=== PATIENT | female | born 1945 | race Hispanic/Latino ===

== ENCOUNTER 2018-10-07 06:06 | Inpatient (IN) | payer MEDICARE, MEDICAID ==
[2018-10-05 18:20] VITALS: BMI 20.7
[2018-10-07] MEDS ORDERED: Lactated Ringer's 1,000 ML IV ONE ×2 (06:59→09:53)
--- NOTE | 2018-10-07 07:18 | CP.SDSHP ---
Same Day Surgery H & P - History Proposed Procedure: L 5th metatarsal ORIF Pre-Op Diagnosis: Left 5th metatarsal fracture - Previous Medical/Surgical History Previous Surgical History: Hysterectomy, L cataract, colectomy - Allergies Allergies: Allergies morphine Allergy (Verified 10/05/18 18:22) HIVES - Physical Exam Vital Signs: Vital Signs 10/07/18 10/07/18 06:34 06:39 Temperature 97.5 F L Pulse Rate 69 69 Respiratory 18 Rate Blood Pressure 154/82 H O2 Sat by Pulse 97 Oximetry Mental Status: Alert & Oriented x3 Neuro: WNL Heart: WNL Lungs: WNL GI: WNL - Impression Impression: Pt was seen and examined in [facility]. Pt NPO status was confirmed. All pre-op testing and clearance in chart. Pt has exhausted all conservative treatment at this time and is opting for surgical intervention. Pt was explained procedure and post-operative course. All pt's questions were answered to satisfaction. No guarantees were made. Pt understands all risks, benefits and complications of procedure. Pt will follow-up with Dr. Vu within 1 week of surgery Pt. Evaluated Today:Candidate for Anesthesia & Procedure: Yes - Date & Time Date: 10/07/18 Time: 07:18 Short Stay Discharge - Short Stay Discharge Admitting Diagnosis/Reason for Visit: [id number] Disposition: HOME/ ROUTINE Additional Instructions (Diet, Activity): -Patient to be admitted to for [facility] extended stay -Pt to resume medications per medical reconciliation -Resume regular diet -Please keep dressing clean, dry, & intact to surgical site -Use plastic bag over bandage for showering -Wear post op shoe at all times when ambulating -Call clinic if you see signs of infection (redness, swelling, malodor) Progress Note/Discharge Note with Instructions: - Patient evaluated bedside in recovery s/p L 5th metatarsal ORIF - After surgical procedure patient in NAD - (+) Void, (+) Appetite - Capillary refill time <3s and NVS intact. - Patient denies complaints at this time. - Post operative instructions and plan of care explained to patient at length. - Patient. acknowledges verbal understanding.
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
[2018-10-07] MEDS ORDERED: Lidocaine 1% Inj (20ml) IJ ONE ×2 (07:23→08:35)
[2018-10-07] MEDS ORDERED: Bupivacaine 0.25% Inj(30mL) IJ ONE (07:23)
[2018-10-07] MEDS ORDERED: Propofol 10 mg/ml Inj (20 ML) ONE ×2 (07:33→07:44)
[2018-10-07] MEDS ORDERED: Midazolam 2 MG/2 ML VIAL ONE ×2 (07:33→07:44)
[2018-10-07] MEDS ORDERED: ePHEDrine 50 mg/ml Inj ONE ×2 (07:44→08:58)
[2018-10-07] MEDS ORDERED: Lidocaine 4% (Laryng-O-Jet) Kit MM ONE (07:44)
[2018-10-07] MEDS ORDERED: Succinylcholine Chloride 20 mg/ml Syr (5 ml) IV ONE (07:44)
[2018-10-07] MEDS ORDERED: Dexamethasone 4 mg/1 ml ONE ×2 (08:05→08:58)
[2018-10-07] MEDS ORDERED: Bupivacaine 0.5% Inj(30mL) ONE (08:06)
[2018-10-07] MEDS ORDERED: Bupivacaine 0.5% 50 ML IJ ONE (08:35)
[2018-10-07] MEDS ORDERED: Desflurane Inhalation Anesthetic Liq (240 ml) ONE (08:42)
[2018-10-07] MEDS ORDERED: Bupivacaine HCl 0.5% PF (30 ml) Inj IJ ONE (10:10)
[2018-10-07] MEDS ORDERED: HYDROmorphone 0.5 mg/0.5 ml ISec IVP PRN (10:41)
--- NOTE | 2018-10-07 10:49 | PCM.SURG1 ---
Surgeon's Initial Post Op Note - Surgeon's Notes Surgeon: Dr. Vu Blast Setter: Dr. Nelida Hagen, PGY3, Dr. Yessica Simpson PGY1 Type of Anesthesia: General Endo, Local Anesthesia Administered By: Dr. Beasley Pre-Operative Diagnosis: L 5th metatarsal fracture Operative Findings: See dicatation: I: 9 cc marcaine plain. M: 0 Cerclage wire, 3-0 Nylon, 2-0 Vicryl Post-Operative Diagnosis: Same Operation Performed: L 5th metatarsal ORIF Specimen/Specimens Removed: None Estimated Blood Loss: EBL {In ML}: 5 Blood Products Given: N/A Drains Used: No Drains Post-Op Condition: Good Date of Surgery/Procedure: 10/07/18 Time of Surgery/Procedure: 10:48
--- NOTE | 2018-10-07 11:18 | RAD ---
Date of service: 10/07/2018 PROCEDURE: Left Foot Radiographs. HISTORY: s/p L 5th met ORIF COMPARISON: None. FINDINGS: Distal left lower extremity cast limits evaluation of fine bony detail. There has been pin fixation of the 5th digit with cerclage wires surrounding the mid metatarsal body. No gross abnormality involving the remaining osseous structures is evident aside from 1st tarsometatarsal joint arthritic changes. IMPRESSION: Open reduction internal fixation of the 5th digit. 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
[2018-10-08] MEDS: Lactated Ringer's 1,000 ML IV SCH (03:00)
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
--- NOTE | 2018-10-08 15:25 | CP.PCM.PN ---
Subjective - Date & Time of Evaluation Date of Evaluation: 10/08/18 Time of Evaluation: 15:23 - Subjective Subjective: Podiatry Progress Note: Dr. Vu 72 year old female patient seen and evaluated POD#1 for L 5th metatarsal ORIF. Patient resting comfortably in Ortho chair and in NAD. She continues to elevate her lower extremity while she is resting.She states that she has participated in physical therapy, becomes dizzy and is unsteady while she walks with her crutches. She is accompanied by her brother at bedside. She denies any N/V/F/SOB/CP. Objective - Vital Signs/Intake and Output Vital Signs (last 24 hours): Temp Pulse Resp BP Pulse Ox 97.6 F 67 18 107/63 100 10/08/18 08:02 10/08/18 08:02 10/08/18 08:02 10/08/18 08:02 10/08/18 08:02 - Medications Medications: Current Medications Acetaminophen (Tylenol 325mg Tab) 325 mg PO Q4 PRN PRN Reason: Pain, Mild (1-3) Acetaminophen (Tylenol 325mg Tab) 650 mg PO Q4 PRN PRN Reason: Pain, moderate (4-7) Last Admin: 10/08/18 14:19 Dose: 650 mg Hydromorphone HCl (Dilaudid) 0.5 mg IVP Q10M PRN PRN Reason: Pain, moderate (4-7) Lactated Ringer's (Lactated Ringer's) 1,000 mls @ 125 mls/hr IV .Q8H CLAIRE Last Admin: 10/08/18 03:00 Dose: Not Given Ondansetron HCl (Zofran Inj) 4 mg IVP Q6 PRN PRN Reason: Nausea/Vomiting - Constitutional Appears: Non-toxic, No Acute Distress - Head Exam Head Exam: ATRAUMATIC, NORMOCEPHALIC - Extremities Exam Additional comments: Posterior splint C/D/I CFT < 3 seconds to digits Patient able to wiggle toes NVS intact - Neurological Exam Neurological Exam: Alert, Awake, Oriented x3 - Psychiatric Exam Psychiatric exam: Normal Affect, Normal Mood Assessment and Plan - Assessment and Plan (Free Text) Assessment: 72 year old female patient seen and evaluated POD#1 for L 5th metatarsal ORIF. Plan: Patient seen and evaluated with all questions and concerns addressed Discussed patient in detail with Dr. Vu Patient to leave dressing C/D/I to the L lower extremity Continue with physical therapy to resolve gait instability Patient to remain NWB to the left lower extremity at all times with the use of crutches/walker Continue to elevate LLE Will continue to follow
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
[2018-10-09] MEDS: Lactated Ringer's 1,000 ML IV SCH (02:44)
[2018-10-09 06:43] LABS: HEMOGLOBIN 12.1 g/dL (12.0-16.0); MEAN CELL VOLUME 91.9 fl (81.0-99.0); MEAN CORPUSCULAR HEMOGLOBIN 29.2 pg (27.0-31.0); MEAN CORPUSCULAR HGB CONC 31.8 g/dL (33.0-37.0); RBC 4.15 Mil/uL (3.80-5.20); RED CELL DISTRIBUTION WIDTH 15.3 % (11.5-14.5); WHITE BLOOD COUNT 6.7 K/uL (4.8-10.8)
[2018-10-09 06:54] LABS: ALB/GLOB RATIO 1.1 (1.0-2.1); ALBUMIN 3.3 g/dL (3.5-5.0); ALT/SGPT 24 U/L (9-52); AST/SGOT 23 U/L (14-36); BLOOD UREA NITROGEN 17 mg/dl (7-17); CALCIUM 8.9 mg/dL (8.4-10.2); GFR NON-AFRICAN AMERICAN > 60
[2018-10-09 07:13] LABS: PROTHROMBIN TIME 11.7 Seconds (9.8-13.1)
[2018-10-09 07:28] LABS: PARTIAL THROMBOPLASTIN TIME 32.8 Seconds (25.6-37.1)
--- NOTE | 2018-10-09 12:05 | CP.PCM.PN ---
Subjective - Date & Time of Evaluation Date of Evaluation: 10/09/18 Time of Evaluation: 12:04 - Subjective Subjective: Podiatry Progress Note: Dr. Vu 72 year old female patient seen and evaluated POD#2 for L 5th metatarsal ORIF. Patient resting comfortably in bed and in NAD. She continues to elevate her lower extremity while she is resting. She states that she has participated in physical therapy, becomes dizzy and is unsteady while she walks with her crutches. Patient states her pain is more well controlled. She denies any N/V/F/SOB/CP. Objective - Vital Signs/Intake and Output Vital Signs (last 24 hours): Temp Pulse Resp BP Pulse Ox 97.8 F 70 20 177/71 H 94 L 10/09/18 08:37 10/09/18 08:37 10/09/18 08:37 10/09/18 08:37 10/09/18 08:37 - Medications Medications: Current Medications Acetaminophen (Tylenol 325mg Tab) 325 mg PO Q4 PRN PRN Reason: Pain, Mild (1-3) Acetaminophen (Tylenol 325mg Tab) 650 mg PO Q4 PRN PRN Reason: Pain, moderate (4-7) Last Admin: 10/09/18 07:15 Dose: 650 mg Hydromorphone HCl (Dilaudid) 0.5 mg IVP Q10M PRN PRN Reason: Pain, moderate (4-7) Ondansetron HCl (Zofran Inj) 4 mg IVP Q6 PRN PRN Reason: Nausea/Vomiting - Labs Labs: 10/09/18 05:50 10/09/18 05:50 PT 11.7 Seconds (9.8-13.1) 10/09/18 05:50 INR 1.0 10/09/18 05:50 APTT 32.8 Seconds (25.6-37.1) 10/09/18 05:50 - Constitutional Appears: Well, Non-toxic, No Acute Distress - Head Exam Head Exam: ATRAUMATIC, NORMOCEPHALIC - Extremities Exam Additional comments: Posterior splint C/D/I CFT < 3 seconds to digits Patient able to wiggle toes NVS intact - Neurological Exam Neurological Exam: Alert, Awake, Oriented x3 - Psychiatric Exam Psychiatric exam: Normal Affect, Normal Mood Assessment and Plan - Assessment and Plan (Free Text) Assessment: 72 year old female patient seen and evaluated POD#2 for L 5th metatarsal ORIF. Plan: Patient seen and evaluated with all questions and concerns addressed with Dr. Vu Discussed patient in detail with Dr. Vu Patient to leave dressing C/D/I to the L lower extremity Continue with physical therapy to resolve gait instability Patient discharge to TCU or [facility] for further rehabilitation Patient to remain NWB to the left lower extremity at all times with the use of crutches/walker Continue to elevate LLE Will continue to follow
[2018-10-10] MEDS: Enoxaparin 40 mg Syringe SC SCH (10:18)
--- NOTE | 2018-10-10 12:23 | CP.PCM.PN ---
Subjective - Date & Time of Evaluation Date of Evaluation: 10/10/18 Time of Evaluation: 12:21 - Subjective Subjective: Podiatry Progress Note: Dr. Vu 72 year old female patient seen and evaluated POD#3 for L 5th metatarsal ORIF. Patient resting comfortably in bed and in NAD. Patient states she has sensitivity to the left leg, but pain is controlled at this time. She continues to elevate her lower extremity while she is resting. She denies any N/V/ F/SOB/CP. Objective - Vital Signs/Intake and Output Vital Signs (last 24 hours): Temp Pulse Resp BP Pulse Ox 97.8 F 58 L 20 146/75 99 10/10/18 08:48 10/10/18 08:48 10/10/18 08:48 10/10/18 08:48 10/10/18 08:48 - Medications Medications: Current Medications Acetaminophen (Tylenol 325mg Tab) 325 mg PO Q4 PRN PRN Reason: Pain, Mild (1-3) Acetaminophen (Tylenol 325mg Tab) 650 mg PO Q4 PRN PRN Reason: Pain, moderate (4-7) Last Admin: 10/10/18 10:17 Dose: 650 mg Enoxaparin Sodium (Lovenox) 40 mg SC DAILY CLAIRE; Protocol Last Admin: 10/10/18 10:18 Dose: 40 mg Ketorolac Tromethamine (Toradol) 15 mg IVP Q6 PRN PRN Reason: Pain, severe (8-10) Last Admin: 10/09/18 23:09 Dose: 15 mg Ondansetron HCl (Zofran Inj) 4 mg IVP Q6 PRN PRN Reason: Nausea/Vomiting - Labs Labs: 10/09/18 05:50 10/09/18 05:50 PT 11.7 Seconds (9.8-13.1) 10/09/18 05:50 INR 1.0 10/09/18 05:50 APTT 32.8 Seconds (25.6-37.1) 10/09/18 05:50 - Constitutional Appears: Well, Non-toxic, No Acute Distress - Head Exam Head Exam: ATRAUMATIC, NORMOCEPHALIC - Extremities Exam Additional comments: Posterior splint C/D/I CFT < 3 seconds to digits Patient able to wiggle toes NVS intact - Neurological Exam Neurological Exam: Alert, Awake - Psychiatric Exam Psychiatric exam: Normal Affect, Normal Mood Assessment and Plan - Assessment and Plan (Free Text) Assessment: 72 year old female patient seen and evaluated POD#3 for L 5th metatarsal ORIF. Plan: Patient seen and evaluated with all questions and concerns addressed Discussed patient in detail with Dr. Vu Patient to leave dressing C/D/I to the L lower extremity Continue with physical therapy to resolve gait instability Patient discharge to TCU or [facility] for further rehabilitation Patient to remain NWB to the left lower extremity at all times with the use of crutches/walker POsterior splint adjusted for patient Continue to elevate LLE and application of ice Will continue to follow
--- NOTE | 2018-10-10 22:09 | CP.PCM.PN ---
Subjective - Date & Time of Evaluation Date of Evaluation: 10/09/18 Time of Evaluation: 16:30 Objective - Vital Signs/Intake and Output Vital Signs (last 24 hours): Temp Pulse Resp BP Pulse Ox 97.6 F 66 18 163/87 H 96 10/10/18 16:35 10/10/18 16:35 10/10/18 16:35 10/10/18 16:35 10/10/18 16:35 - Medications Medications: Current Medications Acetaminophen (Tylenol 325mg Tab) 325 mg PO Q4 PRN PRN Reason: Pain, Mild (1-3) Acetaminophen (Tylenol 325mg Tab) 650 mg PO Q4 PRN PRN Reason: Pain, moderate (4-7) Last Admin: 10/10/18 10:17 Dose: 650 mg Enoxaparin Sodium (Lovenox) 40 mg SC DAILY CLAIRE; Protocol Last Admin: 10/10/18 10:18 Dose: 40 mg Ketorolac Tromethamine (Toradol) 15 mg IVP Q6 PRN PRN Reason: Pain, severe (8-10) Last Admin: 10/09/18 23:09 Dose: 15 mg Ondansetron HCl (Zofran Inj) 4 mg IVP Q6 PRN PRN Reason: Nausea/Vomiting - Labs Labs: 10/09/18 05:50 10/09/18 05:50 PT 11.7 Seconds (9.8-13.1) 10/09/18 05:50 INR 1.0 10/09/18 05:50 APTT 32.8 Seconds (25.6-37.1) 10/09/18 05:50
--- NOTE | 2018-10-10 22:10 | CP.PCM.PN ---
Subjective - Date & Time of Evaluation Date of Evaluation: 10/10/18 Time of Evaluation: 16:40 Objective - Vital Signs/Intake and Output Vital Signs (last 24 hours): Temp Pulse Resp BP Pulse Ox 97.6 F 66 18 163/87 H 96 10/10/18 16:35 10/10/18 16:35 10/10/18 16:35 10/10/18 16:35 10/10/18 16:35 - Medications Medications: Current Medications Acetaminophen (Tylenol 325mg Tab) 325 mg PO Q4 PRN PRN Reason: Pain, Mild (1-3) Acetaminophen (Tylenol 325mg Tab) 650 mg PO Q4 PRN PRN Reason: Pain, moderate (4-7) Last Admin: 10/10/18 10:17 Dose: 650 mg Enoxaparin Sodium (Lovenox) 40 mg SC DAILY CLAIRE; Protocol Last Admin: 10/10/18 10:18 Dose: 40 mg Ketorolac Tromethamine (Toradol) 15 mg IVP Q6 PRN PRN Reason: Pain, severe (8-10) Last Admin: 10/09/18 23:09 Dose: 15 mg Ondansetron HCl (Zofran Inj) 4 mg IVP Q6 PRN PRN Reason: Nausea/Vomiting - Labs Labs: 10/09/18 05:50 10/09/18 05:50 PT 11.7 Seconds (9.8-13.1) 10/09/18 05:50 INR 1.0 10/09/18 05:50 APTT 32.8 Seconds (25.6-37.1) 10/09/18 05:50
--- NOTE | 2018-10-11 06:33 | CP.PCM.PN ---
Subjective - Date & Time of Evaluation Date of Evaluation: 10/11/18 Time of Evaluation: 06:33 - Subjective Subjective: Podiatry Progress Note: Dr. Vu 72 year old female patient seen and evaluated POD#4 for L 5th metatarsal ORIF. Patient resting comfortably in bed and in NAD. Patient states that she continues to use her crutches, however feels unsteady while ambulating. She states that she has had mild burning pain to the surgical site overnight, however the pain is tolerable. She denies any N/V/F/SOB/CP. Objective - Vital Signs/Intake and Output Vital Signs (last 24 hours): Temp Pulse Resp BP Pulse Ox 98.1 F 78 18 108/64 96 10/10/18 23:30 10/10/18 23:30 10/10/18 23:30 10/10/18 23:30 10/10/18 23:30 - Medications Medications: Current Medications Acetaminophen (Tylenol 325mg Tab) 325 mg PO Q4 PRN PRN Reason: Pain, Mild (1-3) Acetaminophen (Tylenol 325mg Tab) 650 mg PO Q4 PRN PRN Reason: Pain, moderate (4-7) Last Admin: 10/10/18 23:02 Dose: 650 mg Enoxaparin Sodium (Lovenox) 40 mg SC DAILY CLAIRE; Protocol Last Admin: 10/10/18 10:18 Dose: 40 mg Ketorolac Tromethamine (Toradol) 15 mg IVP Q6 PRN PRN Reason: Pain, severe (8-10) Last Admin: 10/09/18 23:09 Dose: 15 mg Ondansetron HCl (Zofran Inj) 4 mg IVP Q6 PRN PRN Reason: Nausea/Vomiting - Labs Labs: 10/09/18 05:50 10/09/18 05:50 PT 11.7 Seconds (9.8-13.1) 10/09/18 05:50 INR 1.0 10/09/18 05:50 APTT 32.8 Seconds (25.6-37.1) 10/09/18 05:50 - Constitutional Appears: Non-toxic, No Acute Distress - Head Exam Head Exam: ATRAUMATIC, NORMOCEPHALIC - Extremities Exam Additional comments: Posterior splint C/D/I CFT < 3 seconds to digits Patient able to wiggle toes NVS intact - Neurological Exam Neurological Exam: Alert, Awake, Oriented x3 - Psychiatric Exam Psychiatric exam: Normal Affect, Normal Mood Assessment and Plan - Assessment and Plan (Free Text) Assessment: 72 year old female POD#4 for L 5th metatarsal ORIF. Plan: Patient seen and evaluated at bedside with Dr. Vu Patient to leave dressing C/D/I to the L lower extremity Continue with physical therapy to resolve gait instability Patient to remain NWB to the left lower extremity at all times with the use of crutches/walker Continue to elevate LLE and application of ice Patient discharge to TCU or [facility] for further rehabilitation Will continue to follow while in house
[2018-10-11 08:29] VITALS: RESP 20
[2018-10-11] MEDS: Enoxaparin 40 mg Syringe SC SCH (10:20)
[2018-10-11 23:26] VITALS: BP 147/83; PULSE 64; TEMP 97.4; O2SAT 99
== END 2018-10-11 23:50 | DRG 505 ==
LOC: H.OPSURG 06:06 → H.MEDSURG1 14:10
PROVIDERS: ADMIT Internal Medicine; ATTEND Internal Medicine
PROC: 0QSP04Z Reposition Left Metatarsal with Internal Fixation Device, Open Approach (ICD-10-PCS; principal; 2018-10-07 07:45)
DX: S92.352A Displaced fracture of fifth metatarsal bone, left foot, initial encounter for closed fracture (principal); Z90.710 Acquired absence of both cervix and uterus; H26.9 Unspecified cataract; W19.XXXA Unspecified fall, initial encounter; Y93.9 Activity, unspecified; Y92.9 Unspecified place or not applicable

== ENCOUNTER 2018-10-12 00:14 | Inpatient (IN) | payer OTHER, MEDICAID ==
[2018-10-12 00:23] VITALS: BMI 21.2
[2018-10-12 08:06] VITALS: RESP 20
[2018-10-12] MEDS ORDERED: Tuberculin 5 Units/0.1 ml Inj ID ONE (09:00)
[2018-10-12] MEDS: Enoxaparin 40 mg Syringe SC SCH (10:25)
--- NOTE | 2018-10-12 11:14 | CP.PCM.PN ---
Subjective - Date & Time of Evaluation Date of Evaluation: 10/12/18 Time of Evaluation: 11:08 - Subjective Subjective: Podiatry Progress Note: Dr. Vu 72 year old female patient seen and evaluated in TCU POD#5 for L 5th metatarsal ORIF. Patient resting comfortably in bed and in NAD. Patient continues to participate in physical therapy. She states that her foot is sensitive to the surgical site however the pain is manageable at this time. She denies any N/V/F/SOB/CP. Objective - Vital Signs/Intake and Output Vital Signs (last 24 hours): Temp Pulse Resp BP Pulse Ox 97.4 F L 68 20 146/80 97 10/12/18 08:06 10/12/18 08:06 10/12/18 08:06 10/12/18 08:06 10/12/18 08:06 - Medications Medications: Current Medications Acetaminophen (Tylenol 325mg Tab) 325 mg PO Q4 PRN PRN Reason: Pain, Mild (1-3) Acetaminophen (Tylenol 325mg Tab) 650 mg PO Q4 PRN PRN Reason: Pain, moderate (4-7) Enoxaparin Sodium (Lovenox) 40 mg SC DAILY [facility]; Protocol Last Admin: 10/12/18 10:25 Dose: 40 mg Ketorolac Tromethamine (Toradol) 15 mg IVP Q6 PRN PRN Reason: Pain, severe (8-10) - Constitutional Appears: Non-toxic, No Acute Distress - Head Exam Head Exam: ATRAUMATIC, NORMOCEPHALIC - Extremities Exam Additional comments: Posterior splint C/D/I CFT < 3 seconds to digits Patient able to wiggle toes NVS intact - Neurological Exam Neurological Exam: Alert, Awake, Oriented x3 - Psychiatric Exam Psychiatric exam: Normal Affect, Normal Mood Assessment and Plan - Assessment and Plan (Free Text) Assessment: 72 year old female POD#5 for L 5th metatarsal ORIF. Plan: Patient seen and evaluated at bedside Discussed patient in detail with Dr. Vu Patient to leave dressing C/D/I to the L lower extremity Continue with physical therapy to resolve gait instability Patient to remain NWB to the left lower extremity at all times with the use of crutches/walker Continue to elevate LLE and application of ice behind knee Will continue to follow while in house
[2018-10-13] MEDS: Enoxaparin 40 mg Syringe SC SCH (08:11)
--- NOTE | 2018-10-13 12:36 | CP.PCM.PN ---
Subjective - Date & Time of Evaluation Date of Evaluation: 10/13/18 Time of Evaluation: 12:35 - Subjective Subjective: Anesthesia Addendum Objective - Vital Signs/Intake and Output Vital Signs (last 24 hours): Temp Pulse Resp BP Pulse Ox 97.4 F L 76 20 112/72 96 10/13/18 07:56 10/13/18 07:56 10/13/18 07:56 10/13/18 07:56 10/13/18 07:56 - Medications Medications: Current Medications Acetaminophen (Tylenol 325mg Tab) 325 mg PO Q4 PRN PRN Reason: Pain, Mild (1-3) Acetaminophen (Tylenol 325mg Tab) 650 mg PO Q4 PRN PRN Reason: Pain, moderate (4-7) Enoxaparin Sodium (Lovenox) 40 mg SC DAILY [facility]; Protocol Last Admin: 10/13/18 08:11 Dose: 40 mg Ketorolac Tromethamine (Toradol) 15 mg IVP Q6 PRN PRN Reason: Pain, severe (8-10) Assessment and Plan - Assessment and Plan (Free Text) Assessment: On date of procedure 10/05/18 the medications midazolam 2 mg and fentanyl 100 mcg administered to patient [id number] during their ERCP were erroneously removed from the pyxis unit under the name of patient this patient, [id number].
--- NOTE | 2018-10-14 05:23 | CP.PCM.HP ---
History of Present Illness - History of Present Illness History of Present Illness: A 72 year old female patient seen and evaluated in TCU POD#5 for L 5th metatarsal ORIF. Patient resting comfortably in bed and in NAD. Patient continues to participate in physical therapy. She states that her foot is sensitive to the surgical site however the pain is manageable at this time. She denies any N/V/F/SOB/CP. Present on Admission - Present on Admission Any Indicators Present on Admission: No Review of Systems - Review of Systems All systems: reviewed and no additional remarkable complaints except Review of Systems: As per HPI Past Patient History - Past Medical History & Family History Past Medical History?: Yes - Past Social History Smoking Status: Never Smoked - CARDIAC Hx Heart Murmur: Yes (when she was 25 yrs old during ) - PULMONARY Hx Respiratory Disorders: No - NEUROLOGICAL Hx Neurological Disorder: No - HEENT Hx HEENT Problems: Yes Other/Comment: detached retina both - RENAL Hx Chronic Kidney Disease: No - ENDOCRINE/METABOLIC Hx Endocrine Disorders: No - HEMATOLOGICAL/ONCOLOGICAL Hx Blood Disorders: Yes Hx Cancer: Yes (endometrial and colon) - INTEGUMENTARY Hx Dermatological Problems: No - MUSCULOSKELETAL/RHEUMATOLOGICAL Hx Musculoskeletal Disorders: Yes Hx Falls: Yes - GASTROINTESTINAL Hx Bowel Surgery: Yes - GENITOURINARY/GYNECOLOGICAL Hx Genitourinary Disorders: No - PSYCHIATRIC Hx Substance Use: No - SURGICAL HISTORY Hx Surgeries: Yes Hx Cataract Extraction: Yes (both) Hx Hysterectomy: Yes Other/Comment: LASER BOTH EYES - ANESTHESIA Hx Anesthesia: Yes Hx Anesthesia Reactions: No Hx Malignant Hyperthermia: No Meds Allergies/Adverse Reactions: Allergies Allergy/AdvReac Type Severity Reaction Status Date / Time morphine Allergy HIVES Verified 10/05/18 18:22 Results - Vital Signs Recent Vital Signs: Last Vital Signs Temp 98.2 F 10/13/18 21:47 Pulse 72 10/13/18 21:47 Resp 20 10/13/18 21:47 BP 123/76 10/13/18 21:47 Pulse Ox 96 10/13/18 21:47
--- NOTE | 2018-10-14 05:24 | CP.PCM.PN ---
Subjective - Date & Time of Evaluation Date of Evaluation: 10/13/18 Objective - Vital Signs/Intake and Output Vital Signs (last 24 hours): Temp Pulse Resp BP Pulse Ox 98.2 F 72 20 123/76 96 10/13/18 21:47 10/13/18 21:47 10/13/18 21:47 10/13/18 21:47 10/13/18 21:47 - Medications Medications: Current Medications Acetaminophen (Tylenol 325mg Tab) 325 mg PO Q4 PRN PRN Reason: Pain, Mild (1-3) Last Admin: 10/13/18 15:39 Dose: 325 mg Acetaminophen (Tylenol 325mg Tab) 650 mg PO Q4 PRN PRN Reason: Pain, moderate (4-7) Enoxaparin Sodium (Lovenox) 40 mg SC DAILY [facility]; Protocol Last Admin: 10/13/18 08:11 Dose: 40 mg Ketorolac Tromethamine (Toradol) 15 mg IVP Q6 PRN PRN Reason: Pain, severe (8-10)
[2018-10-14] MEDS: Enoxaparin 40 mg Syringe SC SCH (08:17)
--- NOTE | 2018-10-15 07:05 | CP.PCM.PN ---
Subjective - Date & Time of Evaluation Date of Evaluation: 10/15/18 Time of Evaluation: 07:05 - Subjective Subjective: Podiatry Progress Note: Dr. Vu 72 year old female patient seen and evaluated in TCU POD#8 for L 5th metatarsal ORIF. Patient resting comfortably in bed and in NAD. Patient states that she is experiencing some pain to the L ankle while she participates in physical therapy. She denies any N/V/F/SOB/CP Objective - Vital Signs/Intake and Output Vital Signs (last 24 hours): Temp Pulse Resp BP Pulse Ox 98.2 F 65 20 128/76 94 L 10/14/18 21:03 10/14/18 21:03 10/14/18 21:03 10/14/18 21:03 10/14/18 21:03 - Medications Medications: Current Medications Acetaminophen (Tylenol 325mg Tab) 325 mg PO Q4 PRN PRN Reason: Pain, Mild (1-3) Last Admin: 10/13/18 15:39 Dose: 325 mg Acetaminophen (Tylenol 325mg Tab) 650 mg PO Q4 PRN PRN Reason: Pain, moderate (4-7) Enoxaparin Sodium (Lovenox) 40 mg SC DAILY [facility]; Protocol Last Admin: 10/14/18 08:17 Dose: 40 mg Ketorolac Tromethamine (Toradol) 15 mg IVP Q6 PRN PRN Reason: Pain, severe (8-10) - Constitutional Appears: Non-toxic, No Acute Distress - Head Exam Head Exam: ATRAUMATIC, NORMOCEPHALIC - Extremities Exam Additional comments: Posterior splint C/D/I CFT < 3 seconds to digits Patient able to wiggle toes NVS intact - Neurological Exam Neurological Exam: Alert, Awake, Oriented x3 - Psychiatric Exam Psychiatric exam: Normal Affect, Normal Mood Assessment and Plan - Assessment and Plan (Free Text) Assessment: 72 year old female POD#8 for L 5th metatarsal ORIF. Plan: Patient seen and evaluated at bedside Discussed patient in detail with Dr. Vu Patient to leave dressing C/D/I to the L lower extremity Continue with physical therapy to resolve gait instability Patient to remain NWB to the left lower extremity at all times with the use of crutches/walker Continue to elevate LLE and application of ice behind knee Upon d/c patient to follow up in Dr. Catherine office within 1 week Will continue to follow while in house
[2018-10-15] MEDS: Enoxaparin 40 mg Syringe SC SCH (08:14)
--- NOTE | 2018-10-15 18:08 | CP.PCM.PN ---
Subjective - Date & Time of Evaluation Date of Evaluation: 10/15/18 Time of Evaluation: 17:50 Objective - Vital Signs/Intake and Output Vital Signs (last 24 hours): Temp Pulse Resp BP Pulse Ox 97.7 F 72 20 145/72 95 10/15/18 15:42 10/15/18 15:42 10/15/18 15:42 10/15/18 15:42 10/15/18 15:42 - Medications Medications: Current Medications Acetaminophen (Tylenol 325mg Tab) 325 mg PO Q4 PRN PRN Reason: Pain, Mild (1-3) Last Admin: 10/13/18 15:39 Dose: 325 mg Acetaminophen (Tylenol 325mg Tab) 650 mg PO Q4 PRN PRN Reason: Pain, moderate (4-7) Ketorolac Tromethamine (Toradol) 15 mg IVP Q6 PRN PRN Reason: Pain, severe (8-10)
--- NOTE | 2018-10-15 18:08 | CP.PCM.PN ---
Subjective - Date & Time of Evaluation Date of Evaluation: 10/14/18 Objective - Vital Signs/Intake and Output Vital Signs (last 24 hours): Temp Pulse Resp BP Pulse Ox 97.7 F 72 20 145/72 95 10/15/18 15:42 10/15/18 15:42 10/15/18 15:42 10/15/18 15:42 10/15/18 15:42 - Medications Medications: Current Medications Acetaminophen (Tylenol 325mg Tab) 325 mg PO Q4 PRN PRN Reason: Pain, Mild (1-3) Last Admin: 10/13/18 15:39 Dose: 325 mg Acetaminophen (Tylenol 325mg Tab) 650 mg PO Q4 PRN PRN Reason: Pain, moderate (4-7) Ketorolac Tromethamine (Toradol) 15 mg IVP Q6 PRN PRN Reason: Pain, severe (8-10)
--- NOTE | 2018-10-16 08:26 | CP.PCM.PN ---
Subjective - Date & Time of Evaluation Date of Evaluation: 10/16/18 Time of Evaluation: 08:26 - Subjective Subjective: Podiatry Progress Note: Dr. Vu 72 year old female patient seen and evaluated in TCU with Dr. Vu today, 9 days s/p left foot 5th metatarsal ORIF. Patient resting comfortably in bed and in NAD. Patient states her pain is controlled and very mild. Says she has the walking boot and is ready to transition. States she will be discharged sometime in the next two days. She denies any N/V/F/SOB/CP Objective - Vital Signs/Intake and Output Vital Signs (last 24 hours): Temp Pulse Resp BP Pulse Ox 97.5 F L 69 20 117/71 98 10/16/18 08:07 10/16/18 08:07 10/16/18 08:07 10/16/18 08:07 10/16/18 08:07 - Medications Medications: Current Medications Acetaminophen (Tylenol 325mg Tab) 325 mg PO Q4 PRN PRN Reason: Pain, Mild (1-3) Last Admin: 10/13/18 15:39 Dose: 325 mg Acetaminophen (Tylenol 325mg Tab) 650 mg PO Q4 PRN PRN Reason: Pain, moderate (4-7) Ketorolac Tromethamine (Toradol) 15 mg IVP Q6 PRN PRN Reason: Pain, severe (8-10) - Constitutional Appears: Well, Non-toxic, No Acute Distress - Extremities Exam Additional comments: Left lower extremity exam: Posterior splint C/D/I to left lower extremity Splint removed and surgical site examined Derm: 6cm linear longitudinal incision noted to 5th metatarsal shaft with nylon skin sutures intact, skin edges well coapted, no signs of dehiscence. K-wire noted to be exiting plantar sulcus of 5th digit at MPJ with pin cap in place. No signs of erythema or cellulitis, no malodor, no fluctuance, no drainage, no concern for infection at surgical site or pin site Vasc: CFT < 3 seconds to digits. Temperature gradient is warm to cool. No pedal edema noted. Neuro: protective sensation grossly intact Ortho: Minimal tenderness to palpation of surgical site. No tenderness on calf compression - Neurological Exam Neurological Exam: Alert, Awake, Oriented x3 - Psychiatric Exam Psychiatric exam: Normal Affect, Normal Mood Assessment and Plan - Assessment and Plan (Free Text) Assessment: 72 year old female who is 9 days s/p left foot 5th metatarsal ORIF Plan: Patient seen and evaluated at bedside in TCU with Dr. Vu Posterior splint removed from LLE and new bandage applied Skin sutures to be removed on follow up visit with Dr. Vu in his office in 1 week Continue with physical therapy to resolve gait instability Patient may weight bear at this time using CAM boot at all times Continue to elevate LLE and application of ice behind knee Upon d/c patient to follow up in Dr. Catherine office within 1 week Will continue to follow while in house
--- NOTE | 2018-10-16 23:58 | CP.PCM.PN ---
Subjective - Date & Time of Evaluation Date of Evaluation: 10/16/18 Time of Evaluation: 17:45 Objective - Vital Signs/Intake and Output Vital Signs (last 24 hours): Temp Pulse Resp BP Pulse Ox 97.5 F L 65 20 135/76 96 10/16/18 21:20 10/16/18 21:20 10/16/18 21:20 10/16/18 21:20 10/16/18 21:20 - Medications Medications: Current Medications Acetaminophen (Tylenol 325mg Tab) 325 mg PO Q4 PRN PRN Reason: Pain, Mild (1-3) Last Admin: 10/16/18 16:03 Dose: 325 mg Acetaminophen (Tylenol 325mg Tab) 650 mg PO Q4 PRN PRN Reason: Pain, moderate (4-7) Ketorolac Tromethamine (Toradol) 15 mg IVP Q6 PRN PRN Reason: Pain, severe (8-10)
[2018-10-18 07:46] VITALS: BP 130/70; PULSE 75; TEMP 98.1; O2SAT 98
--- NOTE | 2018-10-18 08:03 | CP.PCM.PN ---
Subjective - Date & Time of Evaluation Date of Evaluation: 10/18/18 Time of Evaluation: 08:02 - Subjective Subjective: Podiatry Progress Note: Dr. Vu 72 year old female patient seen and evaluated in TCU with Dr. Vu today, 10 days s/p left foot 5th metatarsal ORIF. Patient resting comfortably in bed and in NAD. Patient states her pain is controlled and very mild. Says she has the walking boot and is ready to transition. States she will be discharged today. She denies any N/V/F/SOB/CP Objective - Vital Signs/Intake and Output Vital Signs (last 24 hours): Temp Pulse Resp BP Pulse Ox 98.1 F 75 20 130/70 98 10/18/18 07:45 10/18/18 07:45 10/18/18 07:45 10/18/18 07:45 10/18/18 07:45 - Medications Medications: Current Medications Acetaminophen (Tylenol 325mg Tab) 325 mg PO Q4 PRN PRN Reason: Pain, Mild (1-3) Last Admin: 10/17/18 20:39 Dose: 325 mg Acetaminophen (Tylenol 325mg Tab) 650 mg PO Q4 PRN PRN Reason: Pain, moderate (4-7) Ketorolac Tromethamine (Toradol) 15 mg IVP Q6 PRN PRN Reason: Pain, severe (8-10) - Constitutional Appears: Well - Extremities Exam Additional comments: Left lower extremity exam: Derm: 6cm linear longitudinal incision noted to 5th metatarsal shaft with nylon skin sutures intact, skin edges well coapted, no signs of dehiscence. K-wire noted to be exiting plantar sulcus of 5th digit at MPJ with pin cap in place. No signs of erythema or cellulitis, no malodor, no fluctuance, no drainage, no concern for infection at surgical site or pin site Vasc: CFT < 3 seconds to digits. Temperature gradient is warm to cool. No pedal edema noted. Neuro: protective sensation grossly intact Ortho: Minimal tenderness to palpation of surgical site. No tenderness on calf compression Assessment and Plan - Assessment and Plan (Free Text) Assessment: 72 year old female who is 9 days s/p left foot 5th metatarsal ORIF Plan: Patient seen and evaluated at bedside in TCU with Dr. Vu Skin sutures to be removed on follow up visit with Dr. Vu in his office Continue with physical therapy to resolve gait instability Patient may weight bear at this time using CAM boot at all times Continue to elevate LLE and application of ice behind knee stable for d/c from podiatry point of view Upon d/c patient to follow up in Dr. Catherine office on Monday 10/23 Ainsley dueñase ordered Will continue to follow while in house
--- NOTE | 2018-10-19 09:53 | CP.PCM.PN ---
Subjective - Date & Time of Evaluation Date of Evaluation: 10/17/18 Objective - Vital Signs/Intake and Output Vital Signs (last 24 hours): Temp Pulse Resp BP Pulse Ox 98.1 F 75 20 130/70 98 10/18/18 07:45 10/18/18 07:45 10/18/18 07:45 10/18/18 07:45 10/18/18 07:45
--- NOTE | 2018-10-19 09:54 | CP.PCM.DIS ---
Provider - Provider Date of Admission: 10/12/18 00:14 Attending physician: Vidhi Nixon MD Consults: 10/12/18 00:29 Podiatry Consult Routine Comment: Consulting Provider: Segun Vu Consulting Physician: Segun Vu Reason for Consult: post surgery Time Spent in preparation of Discharge (in minutes): 25 Diagnosis - Discharge Diagnosis (1) Fall Status: Acute (2) History of open reduction and internal fixation (ORIF) procedure Status: Acute Discharge Exam - Head Exam Head Exam: ATRAUMATIC, NORMOCEPHALIC Discharge Plan - Follow Up Plan Condition: GOOD Disposition: HOME/ ROUTINE Instructions: Preventing Falls Referrals: Segun Vu DPM [[facility]] -
--- NOTE | 2018-10-21 15:05 | PQF ---
PROVIDER RESPONSE TEXT: Patient admitted due to pain and inability ambulate and to participate in physical therapy using crut ches post surgery. Patient admitted to TCU for continued PT to assist in crutch training, stair negot iation, gait training REVIEWER QUERY TEXT: Condition Necessitating Admission PLEASE CLARIFY THE REASON FOR THE CONTINUEING CARE OF PATIENT IN TCU. Please clarify the medical conditions and the associated clinical risk factors necessitating admissio n. The patient's Clinical Indicators include: XXXX Query created by: Sara Bernal on 10/19/2018 10:25 AM Electronically signed by: Vidhi Nixon MD 10/21/2018 3:02 PM
== END 2018-10-18 14:30 | disposition home health service (06) | DRG 556 ==
LOC: H.TCU 00:14
PROVIDERS: ADMIT Internal Medicine; ATTEND Internal Medicine
PROC: F07Z9FZ Gait Training/Functional Ambulation Treatment using Assistive, Adaptive, Supportive or Protective Equipment (ICD-10-PCS; principal; 2018-10-12)
PROC: F07M6FZ Therapeutic Exercise Treatment of Musculoskeletal System - Whole Body using Assistive, Adaptive, Supportive or Protective Equipment (ICD-10-PCS; 2018-10-12)
DX: M25.572 Pain in left ankle and joints of left foot (principal); R26.89 Other abnormalities of gait and mobility; Z51.89 Encounter for other specified aftercare; Z91.81 History of falling; G89.18 Other acute postprocedural pain